=== PATIENT | male | born 1960 | race Caucasian/White ===

== ENCOUNTER 2017-06-13 16:37 | Emergency (ER) | payer SELFPAY ==
[~2017-06-13] VITALS: Ht 172.7 cm; Wt 101.6 kg
[2017-06-13 17:31] LABS: BARBITURATES NEG (NEG); BENZODIAZEPINES NEG (NEG); CANNABINOIDS NEG (NEG); COCAINE NEG (NEG); METHADONE NEG (NEG); OPIATES POS (NEG); PHENCYCLIDINE NEG (NEG)
[2017-06-13 17:42] LABS: BASO # 0.1 x10^3/uL (0.0-0.2); BASO % 1 % (0-3); EOS % 1 % (0-3); HEMATOCRIT 44.1 % (39.0-53.0); HEMOGLOBIN 14.7 g/dL (13.0-17.5); LYMPH # 2.3 x10^3/uL (1.0-4.8); LYMPH % 24 % (24-48); MEAN CORPUSCULAR HEMOGLOBIN 30 pg (25-35); MEAN CORPUSCULAR HGB CONC 33 g/dL (31-37); MEAN CORPUSCULAR VOLUME 90 fL (79-100); MONO % 8 % (0-9); NEUT % 67 % (31-73); PLATELET COUNT 264 x10^3/uL (140-400); RED BLOOD COUNT 4.89 x10^6/uL (4.30-5.70); RED CELL DISTRIBUTION WIDTH 14.2 % (11.5-14.5); WHITE BLOOD COUNT 9.8 x10^3/uL (4.0-11.0)
[2017-06-13 17:50] LABS: CALCIUM 8.5 mg/dL (8.5-10.1); GFR 77.3; POTASSIUM 3.9 mmol/L (3.5-5.1)
[2017-06-13 17:53] VITALS: BP 156/92
[2017-06-13 17:56] LABS: ALBUMIN 3.9 g/dL (3.4-5.0); ALBUMIN/GLOBULIN RATIO 1.1 (1.0-1.7); TOTAL BILIRUBIN 0.3 mg/dL (0.2-1.0); TOTAL PROTEIN 7.3 g/dL (6.4-8.2)
[2017-06-13] MEDS ORDERED: CLON1TAB3 PO (18:25)
[2017-06-13] MEDS ORDERED: LISI-334 PO (18:25)
[2017-06-13] MEDS ORDERED: CRESTOR10 MG PO (18:25)
[2017-06-13] MEDS ORDERED: SERT100T PO (18:27)
[2017-06-13] MEDS ORDERED: TRAZ150T49 PO (18:27)
[2017-06-13] MEDS ORDERED: HYDR-963 PO (18:27)
[2017-06-13] MEDS ORDERED: CYCL10TA2 PO (18:27)
--- NOTE | 2017-06-13 19:20 | PHYS DOC ---
Past Medical History Past Medical History: Bipolar, Depression, Other Additional Past Medical Histor: chronic back pain, insomnia Past Surgical History: Other Additional Past Surgical Histo: back surgery Alcohol Use: None Drug Use: None Adult General Chief Complaint Chief Complaint: PSYCH EVALUATION HPI HPI Patient is a 56 year old male who presents to the ED requesting a psych evaluation. Reportedly, the patient was previously taking Zoloft and trazodone bed about 1-2 weeks ago the patient's looked it up on the Internet and thought that the medications were "making me bizarre" so she threw them away. His bizarre behavior did not improve. He continued taking clonazepam as prescribed. Today his looked that up to and decided he should come in to be evaluated. The patient has no specific complaint. He states "I have an IQ of 152". Patient denies pain at this time. He denies suicidal or homicidal ideation or other concerning thoughts. Review of Systems Review of Systems Patient is not able to stay on task to answer review of system questions. Physical Exam Physical Exam Constitutional: Well developed, well nourished, no acute distress, non-toxic appearance. Alert, warm and dry. He is up walking around in the halls, talking to nursing staff or anyone who passersby, and must be repeatedly redirected to stay in his room. HENT: Normocephalic, atraumatic, bilateral external ears normal, nose normal. [ ] Eyes: conjunctiva normal, no discharge. [] Neck: Normal range of motion, no stridor. [] Cardiovascular:Heart rate regular rhythm, no murmur [] Lungs & Thorax: Bilateral breath sounds clear to auscultation [] Skin: Warm, dry, no erythema, no rash. [] Extremities: No tenderness, no cyanosis, no clubbing, ROM intact, no edema. [] Neurologic: Alert and oriented X 3, normal motor function, normal sensory function, no focal deficits noted. [] Psychologic: Patient is aware of the situation and judgment appears intact. Patient is talking constantly and loudly to nursing staff but relatively appropriate. Patient is pleasant, not aggressive or threatening. Current Patient Data Vital Signs Vital Signs Date Time Temp Pulse Resp B/P (MAP) Pulse Ox O2 Delivery O2 Flow Rate FiO2 06/13/17 17:53 76 22 156/92 (113) 96 06/13/17 16:52 Room Air 06/13/17 16:47 98.0 98.0 Lab Values Laboratory Tests Test 06/13/17 17:10 06/13/17 17:33 Urine Opiates Screen Pos (NEG) Urine Methadone Screen Neg (NEG) Urine Barbiturates Neg (NEG) Urine Phencyclidine Screen Neg (NEG) Urine Amphetamine/Methamphetamine Neg (NEG) Urine Benzodiazepines Screen Neg (NEG) Urine Cocaine Screen Neg (NEG) Urine Cannabinoids Screen Neg (NEG) Urine Ethyl Alcohol Neg (NEG) White Blood Count 9.8 x10^3/uL (4.0-11.0) Red Blood Count 4.89 x10^6/uL (4.30-5.70) Hemoglobin 14.7 g/dL (13.0-17.5) Hematocrit 44.1 % (39.0-53.0) Mean Corpuscular Volume 90 fL (79-100) Mean Corpuscular Hemoglobin 30 pg (25-35) Mean Corpuscular Hemoglobin Concent 33 g/dL (31-37) Red Cell Distribution Width 14.2 % (11.5-14.5) Platelet Count 264 x10^3/uL (140-400) Neutrophils (%) (Auto) 67 % (31-73) Lymphocytes (%) (Auto) 24 % (24-48) Monocytes (%) (Auto) 8 % (0-9) Eosinophils (%) (Auto) 1 % (0-3) Basophils (%) (Auto) 1 % (0-3) Neutrophils # (Auto) 6.5 x10^3uL (1.8-7.7) Lymphocytes # (Auto) 2.3 x10^3/uL (1.0-4.8) Monocytes # (Auto) 0.8 x10^3/uL (0.0-1.1) Eosinophils # (Auto) 0.1 x10^3/uL (0.0-0.7) Basophils # (Auto) 0.1 x10^3/uL (0.0-0.2) Sodium Level 134 mmol/L (136-145) L Potassium Level 3.9 mmol/L (3.5-5.1) Chloride Level 101 mmol/L (98-107) Carbon Dioxide Level 23 mmol/L (21-32) Anion Gap 10 (6-14) Blood Urea Nitrogen 14 mg/dL (8-26) Creatinine 1.0 mg/dL (0.7-1.3) Estimated GFR (Cockcroft-Gault) 77.3 BUN/Creatinine Ratio 14 (6-20) Glucose Level 102 mg/dL (70-99) H Calcium Level 8.5 mg/dL (8.5-10.1) Total Bilirubin 0.3 mg/dL (0.2-1.0) Aspartate Amino Transferase (AST) 27 U/L (15-37) Alanine Aminotransferase (ALT) 40 U/L (16-63) Alkaline Phosphatase 80 U/L (46-116) Total Protein 7.3 g/dL (6.4-8.2) Albumin 3.9 g/dL (3.4-5.0) Albumin/Globulin Ratio 1.1 (1.0-1.7) Laboratory Tests 06/13/17 17:33 Laboratory Tests 06/13/17 17:33 EKG EKG [] Radiology/Procedures Radiology/Procedures [] Course & Med Decision Making Course & Med Decision Making Pertinent Labs and Imaging studies reviewed. (See chart for details) 56-year-old male had his psych meds discontinued and is having an exacerbation of psychiatric complaints. No homicidal or suicidal ideation. No overt psychosis. Labs, urine drug screen done and the patient was medically cleared. Tiffany from the pat team came to the emergency department to evaluate the patient. She recommended placement of the patient at [facility] and the patient was agreeable to this. Patient was transferred to [facility] in stable condition by EMS. [] Dragon Disclaimer Dragon Disclaimer This electronic medical record was generated, in whole or in part, using a voice recognition dictation system. Departure Departure Impression: Primary Impression: Manic episode Additional Impression: Noncompliance with medication regimen Disposition: 65 XFER TO PSYCH HOSP/UNIT Condition: STABLE Referrals: VICKI DUMONT (PCP) Problem Qualifiers CLEMENT COTTO MD Jun 13, 2017 19:20
== END 2017-06-13 19:18 ==
LOC: ER 16:37
DX: F31.9 Bipolar disorder, unspecified (principal); G89.29 Other chronic pain; Z91.14 Patient's other noncompliance with medication regimen
CPT/HCPCS: 36415; 80053; 80307; 85027; 99285; G0479